=== PATIENT | male | born 1950 | race Caucasian/White ===

== ENCOUNTER 2022-02-03 07:03 | Day surgery (SDC) | payer OTHER ==
--- NOTE | 2022-02-02 15:28 | RAD REPORT ---
EXAM DESCRIPTION: RAD - Chest Pa And Lat (2 Views) - 02/02/2022 3:17 pm CLINICAL HISTORY: Pre op pending hernia surgery Chest pain. COMPARISON: No comparisons FINDINGS: The lungs are clear. The heart is normal in size. No displaced fractures. IMPRESSION: No acute or concerning finding suspected.
[2022-02-02 15:30] LABS: Absolute Lymphocytes (CBC) 0.7 K/uL (0.7-4.9); Hematocrit 46.8 % (39.6-49.0); Lymphocytes % 15.3 % (15.3-44.8); MPV 6.8 fL (7.6-11.3); RBC Red Blood Cell Count 4.76 M/uL (4.33-5.43)
[2022-02-02 15:41] LABS: Potassium 3.7 mmol/L (3.5-5.1)
--- NOTE | 2022-02-03 07:55 | EKG ---
Test Date: 2022-02-02 Test Time: 15:00:59 Mortgage Processor: JAVIER MEASUREMENT RESULTS: Intervals: Rate: 78 CT: 160 QRSD: 84 QT: 376 QTc: 428 [place]: P: 76 CT: 160 QRS: 91 T: 55 INTERPRETIVE STATEMENTS: Normal sinus rhythm Rightward axis Borderline ECG No previous ECG available for comparison Electronically Signed On 02-03-22 07:52:38 CDT by Bassem Worrell
[2022-02-03] MEDS ORDERED: CELECOXIB 100 MG CAPSULE PO ONE (08:00)
[2022-02-03] MEDS ORDERED: ACETAMINOPHEN 500 MG TAB PO ONE (08:00)
[2022-02-03] MEDS ORDERED: FENTANYL CITR 100 MCG/2 ML ONE (08:45)
[2022-02-03] MEDS ORDERED: propofoL 200 MG/20 ML VIAL IV ONE (08:45)
[2022-02-03] MEDS ORDERED: MIDAZOLAM HCL 2 MG/2 ML INJ ONE (08:46)
[2022-02-03] MEDS ORDERED: ONDANSETRON 4 MG/2 ML VIAL ONE ×2 (08:47→10:35)
[2022-02-03] MEDS ORDERED: ROCURONIUM 50 MG/5 ML VIAL IV ONE (08:47)
[2022-02-03] MEDS ORDERED: NEOSTIGMINE 1 MG/ML -10 ML VIAL ONE (08:48)
[2022-02-03] MEDS ORDERED: GLYCOPYRROLATE 0.2 MG/ML SYR ONE (08:48)
[2022-02-03] MEDS ORDERED: LIDOCAINE 1% MPF 5 ML VIAL ONE (08:49)
--- NOTE | 2022-02-03 09:59 | P.BOP ---
Preoperative diagnosis: Right inguinal hernia Postoperative diagnosis: same Primary procedure: Laparoscopic repair of reducible tender right inguinal hernia with mesh General Farmer: HANNAH ALMONTE (SHOULDER PAD MOLDER) Estimated blood loss: <10cc Specimen: none Findings: RIH Anesthesia: General Complications: None Drain(s): Other Implants: medium 3D mesh Transferred to: Recovery Room Condition: Good
[2022-02-03] MEDS ORDERED: KETOROLAC 30 MG/ML INJ ONE (10:20)
[2022-02-03] MEDS: HYDROMORPHONE HCL 1 MG/ML INJ ONE ×3 (10:30→10:40)
[2022-02-03] MEDS ORDERED: HYDROMORPHONE HCL 1 MG/ML INJ ONE (10:45)
[2022-02-03 11:10] VITALS: BP 128/82; TEMP 96.3; O2SAT 98
--- NOTE | 2022-02-03 11:56 | OP ---
Date of Procedure: 02/03/2022 Surgeon: George Castro MD Case Supervisor: Tracey Encarnacion. Preoperative Diagnosis: Right inguinal hernia. Postoperative Diagnosis: Right inguinal hernia. Procedure: Laparoscopic repair of reducible tender right inguinal hernia with mesh. Estimated Blood Loss: Less than 10 mL. Specimen: None. Findings: Right inguinal hernia. Anesthesia: General plus local. Implant: A medium 3D mesh. Indication: This is a case of a male, who comes to us with a tender right inguinal hernia. The digna ent has history of open appendectomy in the past. Benefits, alternatives, and risks fully explained of the laparoscopic possible open repair, which include, but not limited to infection, bleeding, demetria ge to adjacent structures, anesthesia complication, recurrence, chronic pain, chronic numbness, MT, a nd even . He also understands this may not relieve any symptoms. He might need more than 1 leatha gical intervention. He understood, signed a consent. The area of concern was marked by me and the p atient in the holding room. Procedure In Detail: The patient was brought to the operating room, placed in supine position. Anes thesia was done without complication. A time-out was called. Abdomen and inguinal area were prepped and draped in the usual sterile fashion. Marcaine 0.5% was injected for local anesthetic followed b y sharp incision of the skin in the infraumbilical region. The incision was carried down until we fi nd the anterior rectus sheath, that was opened and the muscle retracted laterally to expose the poste rior rectus sheath. The extraperitoneal space was gently developed with the help of blunt dissection and a Spacemaker balloon-tipped catheter was placed in that area and inflated under direct visualiza tion with the scope placed on it. The balloon was deflated. The balloon was removed. We insufflate d the area and placed a 5 mm trocar under direct visualization just above the pubic symphysis and ano ther 1 fdc between the first and the second one. The preperitoneal space was further developed b y exposing the inferior epigastric vessels keeping them anterior. Markos ligament was dissected late rally to the junction with the iliac veins. We did dissection continuing inferiorly to the iliopubic tract avoiding damage to the femoral branch of the genitofemoral nerve and lateral femoral cutaneous nerve. The cord structures were skeletonized. Hernia sac was identified, reduced into the peritone al cavity. At that moment, I introduced over the area a 3D mesh medium size to cover direct and perla rect spaces. The mesh was secured in place and intact with SorbaFix lateral superior to the iliopubi c tract and inferior medial to the Markos ligament. After ensuring hemostasis and proper placement o f the mesh and the hernia sac is still reduced into the abdominal cavity and holding the mesh in plac e under direct visualization, we deflated the area. The anterior rectus sheath was closed with #1 Vi cryl and the skin was approximated with 3-0 chromic and Steri-Strips on top. Sponge count and instru ment counts correct. The patient tolerated the procedure well. The patient was sent to recovery in stable condition. LA NENA/SCOT Voice ID: [id number] Report ID: [id number]
--- NOTE | 2022-02-03 12:52 | DS ---
Diagnosis: Right inguinal hernia. Procedure: Laparoscopic repair of reducible tender right inguinal hernia with mesh. Activity: As tolerated. No heavy lifting. Plan: Follow up in my office in 1 week. Call for appointment at [phone]. Cold compress to the rig ht inguinal region for 24 hours. Medications: Previously called. LA NENA/SCOT Voice ID: [id number] Report ID: [id number]
== END 2022-02-03 13:11 | disposition home or self-care (01) ==
LOC: PRE 07:03
PROVIDERS: ATTEND Surgery
PROC: 0YU54JZ Supplement Right Inguinal Region with Synthetic Substitute, Percutaneous Endoscopic Approach (ICD-10-PCS; principal; 2022-02-03 09:00)
DX: K40.90 Unilateral inguinal hernia, without obstruction or gangrene, not specified as recurrent (principal)
CPT/HCPCS: 93005; 85025; 80048; 36415; 71046; 49650; J2704; J2710; J2250; J3010; J1170 ×2; J2405 ×2